=== PATIENT | female | born 1985 | race Caucasian/White ===

== ENCOUNTER 2023-02-08 23:39 | Emergency (ER) | payer MEDICAID, OTHER ==
[2023-02-09] MEDS ORDERED: Ibuprofen 200 MG TAB ONE (00:04)
[2023-02-09] MEDS ORDERED: Acetaminophen 500 MG TAB ONE ×2 (00:04→03:54)
[2023-02-09] MEDS ORDERED: Ketorolac Tromethamine 30 MG/ML VIAL ONE (02:18)
== END 2023-02-09 04:00 | disposition home or self-care (01) ==
LOC: ERS 23:39
DX: M79.604 Pain in right leg (principal); I10 Essential (primary) hypertension; E78.5 Hyperlipidemia, unspecified; E03.9 Hypothyroidism, unspecified; Z79.899 Other long term (current) drug therapy
CPT/HCPCS: 96372; J1885